=== PATIENT | male | born 1970 | race Caucasian/White ===

== ENCOUNTER 2020-12-05 18:13 | Emergency (ER) | payer OTHER ==
[~2020-12-05] VITALS: Ht 195.6 cm; Wt 93.0 kg
[2020-12-05 18:21] VITALS: BP 131/93
--- NOTE | 2020-12-05 18:32 | NUR ---
50YO M C/O LEFT ARM/SHOULDER PAIN S/P FALL 1 HOUR AGO. 10, SHARP PAIN UPON MOVEMENT. PER PATIENT, FALL WAS FROM LADDER APPROX 12FT HIGH. DENIES HEAD TRAUMA. UPON ASSESSMENT, AOX4. VSS. NORMAL HEART RATE REGULAR RHYTHM. CLEAR BREATH SOUNDS. ABDOMEN SOFT, NONTENDER. UNABLE TO MOVE LEFT ARM DUE TO PAIN. CAP REFILL <4SECS. WITH LAC WOUND TO LEFT LOWER LEG. PT POSITIONED COMFORTABLY IN BED WITH 2 SIDERAILS UP. ERMD MADE AWARE OF PT STATUS. PMH:DENIES NKA
--- NOTE | 2020-12-05 18:32 | NUR ---
Patient transferred to bed 6 via wheelchair by triage nurse. RN evaluating patient at bedside.
--- NOTE | 2020-12-05 18:44 | NUR ---
XRAY AT BEDSIDE
--- NOTE | 2020-12-05 19:14 | NUR ---
REPORT GIVEN TO NURYS HO. ALL CARE TRANSFERRED AT THIS TIME.
--- NOTE | 2020-12-05 19:21 | NUR ---
APPLIED SLING TO LEFT SHOULDER WITHOUT ANY ISSUES
--- NOTE | 2020-12-05 19:23 | NUR ---
RECEIVED REPORT FROM ALLISON NUNO
[2020-12-05] MEDS: HYDROcodone/APAP 5/325 MG 1 TAB TAB PO ONE (19:43)
--- NOTE | 2020-12-05 20:06 | NUR ---
PT RATES PAIN 3 AT THIS TIME
--- NOTE | 2020-12-05 20:42 | NUR ---
Pt ambulated to restroom w/ steady gait.
--- NOTE | 2020-12-05 21:09 | NUR ---
LACERATION TRAY AT BEDSIDE FOR MD ALONG WITH ROSARIO
[2020-12-05] MEDS ORDERED: LIDOCAINE MPF 1% 5 ML ONE (21:11)
--- NOTE | 2020-12-05 21:24 | NUR ---
AT BEDSIDE REPAIRING LAC
[2020-12-05] MEDS ORDERED: BACITRACIN OINT 500 UNITS/GM PKT TP ONE (22:04)
[2020-12-05 22:16] VITALS: BP 128/87
[2020-12-05] MEDS: HYDROcodone/APAP 10/325 MG 1 TAB TAB PO ONE (22:16)
== END 2020-12-05 22:16 | disposition home or self-care (01) ==
LOC: MED 18:13
DX: S43.085A Other dislocation of left shoulder joint, initial encounter (principal); S81.812A Laceration without foreign body, left lower leg, initial encounter; W11.XXXA Fall on and from ladder, initial encounter; Y93.89 Activity, other specified; Y92.89 Other specified places as the place of occurrence of the external cause; Y99.8 Other external cause status
CPT/HCPCS: 12001; 23650; 71045; 73020; 73030; 73590; 99284; J2001